=== PATIENT | male | born 1980 | race Caucasian/White ===

== ENCOUNTER 2019-08-18 13:36 | Emergency (ER) | payer MEDICAID ==
[2019-08-18] MEDS ORDERED: Acetaminophen/HYDROcodone 325-10 MG Tab PO ONE (14:39)
--- NOTE | 2019-08-18 14:51 | EDM.PDOC ---
ED HPI GENERAL MEDICAL PROBLEM - General Chief Complaint: General Stated Complaint: TOOTH ACHE Time Seen by Provider: 08/18/19 14:02 Source of Information: Reports: Patient, Family (mother) History Limitations: Reports: No Limitations - History of Present Illness INITIAL COMMENTS - FREE TEXT/NARRATIVE: Patient presents with tooth pain for a few days. He saw a dentist this week and was started on Amoxicillin, Tylenol (500mg x 2) and Ibuprofen (200 mg x 2) three times a day alternating. He is scheduled with the dentist for tooth extraction on Tuesday at 1:00 at [facility]. Today the tooth pain is unbearable and he has been taking the above medications as directed. He would like additional pain control. Tooth/Teeth Pain Score (Numeric/FACES): 9 - Related Data Allergies Allergy/AdvReac Type Severity Reaction Status Date / Time No Known Drug Allergies Allergy Cannot Verified 08/18/19 13:59 Remember Home Meds: Home Meds Amoxicillin 875 mg PO BID 08/18/19 [History] Social & Family History - Tobacco Use Smoking Status *Q: Current Every Day Smoker Years of Tobacco use: 10 Packs/Tins Daily: 1 - Caffeine Use Caffeine Use: Reports: Soda - Recreational Drug Use Recreational Drug Use: No ED ROS GENERAL - Review of Systems Review Of Systems: See Below Constitutional: Denies: Fever, Chills, Malaise, Weakness HEENT: Reports: Dental Pain. Denies: Ear Discharge, Ear Pain, Throat Pain, Throat Swelling, Vision Change Respiratory: Denies: Shortness of Breath, Cough Cardiovascular: Reports: No Symptoms Endocrine: Reports: No Symptoms GI/Abdominal: Reports: No Symptoms Musculoskeletal: Reports: No Symptoms Skin: Reports: No Symptoms Neurological: Reports: No Symptoms ED EXAM, GENERAL - Physical Exam Exam: See Below Exam Limited By: No Limitations General Appearance: Alert, WD/WN, No Apparent Distress Eye Exam: Bilateral Eye: EOMI, Normal Inspection, PERRL Ears: Normal External Exam, Normal Canal, Hearing Grossly Normal, Normal TMs Nose: Normal Inspection, No Blood Throat/Mouth: Normal Lips, Normal Voice, No Airway Compromise, Other (very poor dentition in general; the left rear upper and lower molars are tender with broken teeth evident and erythematous gums.) Head: Atraumatic, Normocephalic Neck: Normal Inspection, Supple, Full Range of Motion Respiratory/Chest: No Respiratory Distress, Lungs Clear, Normal Breath Sounds Cardiovascular: Regular Rate, Rhythm, No Murmur Extremities: Normal Inspection, Normal Range of Motion Neurological: Alert, Oriented, Normal Cognition, No Motor/Sensory Deficits Psychiatric: Normal Affect, Normal Mood Skin Exam: Warm, Dry, Intact, Normal Color, No Rash Course - Vital Signs Last Recorded V/S: Last Vital Signs Temp 97.2 F 08/18/19 13:59 Pulse 67 08/18/19 13:59 Resp 18 08/18/19 13:59 BP 112/63 08/18/19 13:59 Pulse Ox 99 08/18/19 13:59 - Orders/Labs/Meds Meds: Medications Discontinued Medications Generic Name Dose Route Start Last Admin Trade Name Eh PRN Reason Stop Dose Admin Hydrocodone Bitart/Acetaminophen 8 tab 08/18/19 14:39 [place] 325-10 Mg PO 08/18/19 14:40 ONETIME ONE - Re-Assessments/Exams Free Text/Narrative Re-Assessment/Exam: 08/18/19 14:55 Discussed findings and treatment plan with patient and his mother. Patient is given Hydrocodone 10/325 x 8 tablets to get through the weekend until he sees the dentist on Tuesday. Stable at discharge. Departure - Departure Time of Disposition: 14:43 Disposition: Home, Self-Care 01 Condition: Good Clinical Impression: Tooth pain - Discharge Information Referrals: Johnnie Hernandez PA-C [Primary Care Provider] - Additional Instructions: 1. Drink 8 cups of water daily. 2. Continue the Ibuprofen at 600 mg three times a day. 3. Continue the Tylenol 1000 mg three times a day except decrease it to 500 mg at a time if you are using the Vicodin. 4. Use Vicodin as directed if needed. 5. Follow up with your dentist on Tuesday as scheduled.
== END 2019-08-18 15:00 | disposition home or self-care (01) ==
LOC: KA.ED 13:36
DX: K08.89 Other specified disorders of teeth and supporting structures (principal); K00.7 Teething syndrome; F17.210 Nicotine dependence, cigarettes, uncomplicated
CPT/HCPCS: 99283; A9270-GY